=== PATIENT | female | born 1975 | race Caucasian/White ===

== ENCOUNTER → 2022-12-20 10:54 | Outpatient (REF) | payer BC, SELFPAY ==
--- NOTE | 2022-12-20 11:02 | CA_ITS ---
Transthoracic Echocardiogram Patient (Last, First, Middle): Blanca Brown, Gender: Female Date of : 1975 Age: 47 Procedure Date: 12/20/2022 Procedure Type: Transthoracic Echocardiogram Location: OP Height: 162.56 cm Weight: 90.72 kg BSA: 1.96 m2 Heart Rate: 73 bpm BP: 100 / 70 mmHg Programmer Analyst: TO Referring MD: Aleena Guidry MD Symptoms: R07.89 CHEST PAIN Study Quality: Adequate/Contrast ECG Rhythm: Sinus Conclusions: - The left ventricular systolic function is low normal. The visually estimated ejection fraction is between 50-55%. - No obvious valvular pathology seen on this study. Findings Procedure Information Contrast agent, definity, is being given per protocol without apparent complications. Left Ventricle Normal left ventricular cavity size. There is normal left ventricular wall thickness. The left ventricular systolic function is low normal. The visually estimated ejection fraction is between 50-55%. There is no evidence of regional wall motion abnormalities. Diastolic function is normal for age. Right Ventricle Normal right ventricular cavity size. There is low normal right ventricular systolic function. Atria Both atria are normal in size. Aortic Valve There is a normal trileaflet aortic valve. There is no aortic valve stenosis. There is trace (trivial) aortic valve regurgitation. Mitral Valve There is mild anterior mitral leaflet thickening. There is no mitral valve regurgitation. There is no mitral valve stenosis. Pulmonic Valve There is trace pulmonic valve regurgitation. Tricuspid Valve There is trace tricuspid valve regurgitation. There is no evidence of pulmonary hypertension. Great Vessels The asc aorta is normal in size. Venous The inferior vena cava is normal in size and collapses greater than 50% with inspiration. Pericardium/Pleural There is no evidence of pericardial effusion. Prior Study Comparison No prior study available for comparison. Recommendations, Care & Conclusions No obvious valvular pathology seen on this study. Measurements 2D Linear Measurements IVSd: 1.00 0.6-0.9/0.6-1.0 cm LVIDd: 5.00 3.9-5.3/4.2-5.9 cm LVIDd Index: 2.55 2.4-3.2/2.2-3.1 cm/m2 LVIDs: 3.50 2.0-3.6 cm LVPWd: 0.90 0.7-1.1 cm LA Diam: 2.90 2.7-3.8/3.0-4.0 cm LAIDs Index: 1.48 1.5-2.3 cm/m2 LV Mass: 211.65 67-162/88-224 g LV Mass Index: 107.98 43-95/49-115 g/m2 LVOT Diam: 2.00 3.0+(-)1.3 cm 2D Systolic Function EF 4C: 55.90 >55% Mitral Valve MV Pk E: 0.54 MV PK A: 0.48 MV Decel Time: 175.00 E/A: 1.10 E'Lateral: 8.49 E'Medial: 7.51 E/E' Med: 7.20 E/E' Lat: 6.40 PHT: 51.00 MVA PHT: 4.31 Decel Refugio: 3.09 Aortic Valve AoV Pk Chris: 1.29 AoV Mn Chris: 0.86 AoV VTI: 0.22 AoV Pk Grad: 7.00 Aov Mn Grad: 3.00 KELSEY Cont.VTI: 2.02 LVOT LVOT Pk Chris: 0.84 LVOT Mn Chris: 0.56 LVOT VTI: 0.14 LVOT Pk Grad: 3.00 LVOT Mn Grad: 1.00 LVOT Diam: 2.00 LVOT Area: 3.14 Diastolic Function MV Pk E: 0.54 MV Pk A: 0.48 E/A: 1.10 E'Medial: 7.51 E/E' Med: 7.20 E' Laterial: 8.49 E/E' Lat: 6.40 Right Ventricle TAPSE (mm): 18.20 TVS' Chris: 10.60 Tricuspid Valve TR Pk Chris: 1.90 TR Pk Grad: 14.00 RA Press: 3.00 RVSP: 17.00 Great Vessels Aorta Sinus of Valsalva: 3.00 2.0-3.[address] Ridge: 2.00 1.7-3.4 cm Ao Asc: 3.10 2.1-3.4 cm Updated in Other Vendor System with Status of Final Jered Tirado MD electronically signed on 12/20/2022 3:57:16 PM with status of Final
== END ==
LOC: HO.CARD 10:54
PROVIDERS: PCP Family Medicine; Visit Provider Family Medicine
DX: Z01.818 Encounter for other preprocedural examination (principal); R07.89 Other chest pain
CPT/HCPCS: 93306; Q9957

== ENCOUNTER → 2022-12-20 11:02 | Outpatient (BNV) | payer BC, SELFPAY | PROVIDERS: PCP Family Medicine; Visit Provider Internal Medicine | DX: I34.89 Other nonrheumatic mitral valve disorders (principal) | CPT/HCPCS: 93306 ==